=== PATIENT | female | born 1965 ===

== ENCOUNTER 2018-07-02 11:31 | Emergency (ER) | payer OTHER ==
[2018-07-02 11:31] VITALS: BMI 30.1
[2018-07-02 11:40] VITALS: RESP 20; TEMP 98.1
--- NOTE | 2018-07-02 12:59 | C.PDOC ---
History Of Present Illness 53 y/o female presents to the ED complaining of left knee pain shooting up to her thigh for the past several months. Associated with left thigh swelling. Patient has been seen by an orthopedist had previous x-ray as well as MRI here in March. She reports she has not followed up since March, but has an appointment for Friday 07/07. Otherwise patient denies any numbness, weakness, or tingling. No new change in pain. No open wounds. Time Seen by Provider: 07/02/18 11:37 Chief Complaint (Nursing): Lower Extremity Problem/Injury History Per: Patient History/Exam Limitations: no limitations Onset/Duration Of Symptoms: Days Current Symptoms Are (Timing): Still Present Past Medical History Reviewed: Historical Data, Nursing Documentation, Vital Signs Vital Signs: Last Vital Signs Temp 98.1 F 07/02/18 11:40 Pulse 76 07/02/18 11:40 Resp 20 07/02/18 11:40 BP 146/87 07/02/18 11:40 Pulse Ox 97 07/02/18 11:40 - Medical History PMH: Gastritis, Hypothyroidism Surgical History: Cholecystectomy - [facility] (09/18/12) Family History: States: [place] (father) - Social History Hx Tobacco Use: No Hx Alcohol Use: No Hx Substance Use: No - Immunization History Hx Tetanus Toxoid Vaccination: No Hx Influenza Vaccination: Yes Hx Pneumococcal Vaccination: No Review Of Systems Constitutional: Negative for: Fever, Chills Cardiovascular: Negative for: Chest Pain Respiratory: Negative for: Shortness of Breath Gastrointestinal: Negative for: Abdominal Pain Musculoskeletal: Positive for: Leg Pain (left knee/thigh pain), Other (left thigh swelling) Skin: Negative for: Rash, Lesions Neurological: Negative for: Weakness, Numbness Physical Exam - Physical Exam Appears: Well, Non-toxic, No Acute Distress Skin: Warm, Dry, No Rash Head: Atraumatic, Normacephalic Eye(s): bilateral: Normal Inspection Neck: Normal ROM Chest: Symmetrical Respiratory: No Accessory Muscle Use Back: No CVA Tenderness, No Vertebral Tenderness Extremity: Normal ROM (x4), Tenderness (diffuse tenderness to the left knee and left thigh), No Deformity, Swelling (to left thigh), Other (No erythema or skin changes) Pulses: Left Dorsalis Pedis: Normal, Right Dorsalis Pedis: Normal Neurological/Psych: Oriented x3, Normal Speech Gait: Steady ED Course And Treatment O2 Sat by Pulse Oximetry: 97 (RA) Pulse Ox Interpretation: Normal Progress Note: Reviewed MRI report, showing multiple abnormalities. Patient advised of the importance of follow up with orthopedist. Ordered venous duplex of the LLE, which is negative for DVT. Patient remains AAOx3, resting comfortably, ambulatory with steady gait. Will discharge patient home with plan for outpatient ortho follow up. Disposition - Disposition Disposition: HOME/ ROUTINE Disposition Time: 13:55 Condition: STABLE Additional Instructions: Follow up with PMD/Orthopedist within 1-2 days. Return to ED if feel worse. Prescriptions: Ibuprofen [Motrin Tab] 600 mg PO Q8 #30 tab traMADol [Ultram] 50 mg PO Q6 #10 tab Instructions: Chronic Knee Pain Forms: [facility] ([place]), Work Excuse - Clinical Impression Clinical Impression: Knee pain - PA / GENERAL FORECASTER / Resident Statement MD/DO has reviewed & agrees with the documentation as recorded. - Scribe Statement The provider has reviewed the documentation as recorded by the Scribyohana Santos All medical record entries made by the Randallibyohana were at my direction and personally dictated by me. I have reviewed the chart and agree that the record accurately reflects my personal performance of the history, physical exam, medical decision making, and the department course for this patient. I have also personally directed, reviewed, and agree with the discharge instructions and disposition.
[2018-07-02 14:03] VITALS: BP 122/77; PULSE 74
[2018-07-02 14:26] VITALS: O2SAT 97
--- NOTE | 2018-07-03 12:48 | VASCLAB ---
Date of service: 07/02/2018 PROCEDURE: Left Lower Extremity Venous Duplex Exam. HISTORY: pain/swelling PRIORS: None. TECHNIQUE: Left common femoral, femoral, popliteal and posterior tibial, peroneal and great saphenous veins were evaluated. Flow was assessed with color Doppler, compressibility, assessment of phasic flow and augmentation response. Report prepared by MOLLY Nevarez, RVT FINDINGS: LEFT: 1. Common Femoral Vein: 1.1. Compressibility - Fully compressible: Thrombus - None : Flow - Phasic: Augmentation -Normal: Reflux - None. 2. Femoral Vein: 2.1. Compressibility - Fully compressible: Thrombus - None: Flow - Phasic: Augmentation -Normal: Reflux - None. 3. Popliteal Vein: 3.1. Compressibility - Fully compressible: Thrombus - None: Flow - Phasic: Augmentation -Normal: Reflux - None. 4. Posterior Tibial Vein: 4.1. Compressibility - Fully compressible: Thrombus - None: Flow - Phasic: Augmentation -Normal: Reflux - None. 5. Peroneal Vein: 5.1. Compressibility - Fully compressible: Thrombus - None: Flow - Phasic: Augmentation -Normal: Reflux - None. 6. Great Saphenous Vein: 6.1. Compressibility - Fully compressible: Thrombus - None: Flow - Phasic: Augmentation - Normal: Reflux - None. OTHER FINDINGS: IMPRESSION: No evidence of deep or superficial vein thrombosis of the left lower extremity with excellent venous flow. Normal valve function noted of the left side. Normal venous flow noted in the right common femoral vein.
== END 2018-07-02 14:03 | disposition home or self-care (01) ==
LOC: C.ER 11:31
DX: M25.562 Pain in left knee (principal)